=== PATIENT | male | born 1970 | race Hispanic/Latino ===

== ENCOUNTER 2017-11-21 05:30 | Day surgery (SDC) | payer MEDICAID ==
[~2017-11-21] VITALS: Ht 170.2 cm; Wt 82.6 kg
[~2017-11-21 05:30] MED LIST: CALC-1121 PO; DIPH50CA4 PO; ESOM40CA PO; FISH1CAP63 PO; LEVO50TA11 PO; LISI-613 PO; SERT100T12 PO; SIMV80TA7 PO
[2017-11-21] MEDS ORDERED: SODIUM CHLORIDE 0.9% 1000ML 1,000 ML IV ONE (06:20)
[2017-11-21 06:39] VITALS: BP 125/76
[2017-11-21 07:17] VITALS: BP 124/82
== END 2017-11-21 07:55 | disposition home or self-care (01) ==
LOC: ENDO 05:30 → DAH 05:30 → ENDO 07:55
PROVIDERS: ATTEND Internal Medicine
DX: K29.50 Unspecified chronic gastritis without bleeding (principal); K31.89 Other diseases of stomach and duodenum; F32.9 Major depressive disorder, single episode, unspecified; I10 Essential (primary) hypertension; F20.9 Schizophrenia, unspecified; E78.5 Hyperlipidemia, unspecified; K21.9 Gastro-esophageal reflux disease without esophagitis; Z68.30 Body mass index [BMI] 30.0-30.9, adult; Z79.899 Other long term (current) drug therapy
CPT/HCPCS: 43239; 43250; 88305; 88312; A4606; J7030

== ENCOUNTER 2019-06-24 05:51 | Day surgery (SDC) | payer MEDICAID ==
[~2019-06-24] VITALS: Ht 167.6 cm; Wt 83.9 kg
[~2019-06-24 05:51] MED LIST changes: -SIMV80TA7 PO; +SIMV80TA91 PO
[2019-06-24] MEDS ORDERED: SODIUM CHLORIDE 0.9% 1000ML 1,000 ML IV ONE (06:25)
[2019-06-24 06:29] VITALS: BP 127/82
[2019-06-24] MEDS ORDERED: OMEP-298 PO (06:56)
[2019-06-24] MEDS ORDERED: LACT1CAP78 PO (06:56)
[2019-06-24] MEDS ORDERED: ACET-2743 PO (06:56)
[2019-06-24] MEDS ORDERED: LIDOCAINE HCL-MPF 2% 5ML VIAL ONE (07:04)
[2019-06-24] MEDS ORDERED: PROPOFOL 10 MG/ML 20ML VIAL IV ONE ×2 (07:04→07:20)
[2019-06-24] MEDS ORDERED: FENTANYL CITRATE PF 50 MCG/1 ML 2ML VIAL ONE (07:05)
[2019-06-24] MEDS ORDERED: PHENYLEPHRINE HCL 10 MG/ML 1ML VIAL IV ONE (07:13)
[2019-06-24 07:35] VITALS: BP 86/50
[2019-06-24 07:40] VITALS: BP 97/60
[2019-06-24 07:45] VITALS: BP 98/62
[2019-06-24 07:50] VITALS: BP 108/74
[2019-06-24 07:55] VITALS: BP 115/72
== END 2019-06-24 08:05 | disposition home or self-care (01) ==
LOC: DAH 05:51
PROVIDERS: ATTEND Internal Medicine Gastroenterology
DX: R19.7 Diarrhea, unspecified (principal); K31.7 Polyp of stomach and duodenum; K29.50 Unspecified chronic gastritis without bleeding; K21.9 Gastro-esophageal reflux disease without esophagitis; Z85.020 Personal history of malignant carcinoid tumor of stomach; E78.5 Hyperlipidemia, unspecified; F20.89 Other schizophrenia; I10 Essential (primary) hypertension; F32.9 Major depressive disorder, single episode, unspecified; Z79.899 Other long term (current) drug therapy
CPT/HCPCS: 43239; 45380; A4215; A4221; A4222; A4223; A4606; A4615; A4663; J2370; J2704 ×2; J3010; J3490; J7030